=== PATIENT | female | born 1930 | race African-American/Black ===

== ENCOUNTER 2017-03-13 23:10 | Inpatient (IN) | payer MEDICARE ==
[~2017-03-13] VITALS: Ht 162.6 cm; Wt 58.5 kg
[2017-03-13] MEDS ORDERED: NITROGLYCERIN OINT 1GM/INCH UDPKT TD STA (23:21)
[2017-03-13] MEDS ORDERED: MORPHINE SULFATE 4 MG/ML CPJ (NOT FOR IM USE) IV STA (23:21)
[2017-03-13] MEDS ORDERED: FUROSEMIDE 40MG/4ML VIAL IV STA (23:21)
[2017-03-13] MEDS ORDERED: ONDANSETRON HCL 4MG/2ML VIAL IV STA (23:21)
[2017-03-13 23:43] LABS: BASOPHILS % 0.5 % (0.0-2.0); EOSINOPHILS % 2.4 % (0.0-5.0); HEMATOCRIT. 29.2 % (36.0-48.0); HEMOGLOBIN. 9.5 g/dL (12.0-16.0); LYMPHOCYTES % 23.1 % (20.0-50.0); MEAN CORPUSCULAR HEMOGLOBIN 26.5 pg (28.0-32.0); MEAN CORPUSCULAR VOLUME 81.3 fL (81.0-99.0); MEAN PLATELET VOLUME 8.9 fl (7.4-10.4); PLATELET 232 x1000/uL (130-400); RED BLOOD CELL COUNT 3.59 mill/uL (4.2-5.4); RED CELL DISTRIBUTION WIDTH 13.8 % (11.6-14.6)
[2017-03-13 23:49] LABS: CHLORIDE 105 mEq/L (98-107)
[2017-03-13 23:50] LABS: PROTHROMBIN TIME 10.3 sec (9.4-11.6)
[2017-03-13 23:59] LABS: CARBON DIOXIDE 25 mEq/L (21-32); TROPONIN I 0.05 ng/mL (0.00-0.04)
[2017-03-14 08:12] VITALS: BP 145/72
[2017-03-14 08:20] VITALS: BP 145/72
[2017-03-14] MEDS ORDERED: [UNRECOGNIZED DRUG - REMARK] (10:40)
[2017-03-14] MEDS ORDERED: DILT180C69 PO (10:40)
[2017-03-14] MEDS ORDERED: LOSA100T14 PO (10:40)
[2017-03-14] MEDS ORDERED: INSULIN PEN SQ (10:40)
[2017-03-14] MEDS ORDERED: PANT40TA4 PO (10:40)
[2017-03-14] MEDS ORDERED: ASPI-1159 PO (10:40)
[2017-03-14] MEDS ORDERED: ACETAMINOPHEN 650MG/20.3ML UDC PO PRN (11:15)
[2017-03-14] MEDS ORDERED: DEXTROSE 50% WATER 50ML SYRINGE IV PRN (11:15)
[2017-03-14] MEDS ORDERED: IPRATROPIUM/ALBUTEROL 0.5-3(2.5)MG/3ML NEB HHN PRN (11:15)
[2017-03-14] MEDS: BLOOD SUGAR DIAGNOSTIC STRIP TEST SCH ×3 (12:20→20:22)
[2017-03-14 13:03] VITALS: BP 135/61
[2017-03-14] MEDS: ACETAMINOPHEN 325MG TABLET PO PRN (13:26)
[2017-03-14] MEDS: ENOXAPARIN 30MG/0.3ML SYR SUBCUT SCH (13:27)
[2017-03-14] MEDS: INSULIN LISPRO 100 UNITS/ML SUBCUT SCH ×3 (13:28→20:29)
[2017-03-14 15:29] LABS: CREATINE KINASE MB FRACTION 2.1 ng/mL (0.5-3.6); TROPONIN I 0.07 ng/mL (0.00-0.04)
[2017-03-14] MEDS: METHYLPREDNISOLONE SOD SUCC 40 MG/ML VIAL IV SCH ×2 (16:19→20:30)
[2017-03-14] MEDS ORDERED: AZITHROMYCIN 500 MG in DEXT 5% WATER 250 ML IV SCH (17:00)
[2017-03-14 17:40] VITALS: BP 147/71
[2017-03-14] MEDS ORDERED: ONDANSETRON HCL 4MG/2ML VIAL IV PRN (18:45)
[2017-03-14 19:29] LABS: CLARITY URINE CLEAR (CLEAR); COLOR URINE YELLOW (YELLOW); GLUCOSE URINE NEGATIVE (NEGATIVE); KETONES URINE NEGATIVE (NEGATIVE); LEUKOCYTE ESTERASE URINE 1+ (NEGATIVE); NITRITE URINE NEGATIVE (NEGATIVE); OCCULT BLOOD URINE NEGATIVE (NEGATIVE); PROTEIN URINE 3+ (NEGATIVE); SPECIFIC GRAVITY URINE 1.016 (1.005-1.030); UROBILINOGEN URINE 0.2 E.U./dL (0.2-1.0)
[2017-03-14 20:00] VITALS: BP 133/72
[2017-03-14 23:27] LABS: CREATINE KINASE MB FRACTION 2.1 ng/mL (0.5-3.6); TROPONIN I 0.06 ng/mL (0.00-0.04)
[2017-03-15] VITALS: BP 127/68
[2017-03-15 04:00] VITALS: BP 118/55
[2017-03-15] MEDS: BLOOD SUGAR DIAGNOSTIC STRIP TEST SCH ×2 (06:23→12:04)
[2017-03-15] MEDS: ACETAMINOPHEN 325MG TABLET PO PRN (06:30)
[2017-03-15 07:12] LABS: CREATINE KINASE MB FRACTION 1.9 ng/mL (0.5-3.6)
[2017-03-15 07:41] LABS: TROPONIN I 0.03 ng/mL (0.00-0.04)
[2017-03-15] MEDS: METHYLPREDNISOLONE SOD SUCC 40 MG/ML VIAL IV SCH (08:43)
[2017-03-15] MEDS: ENOXAPARIN 30MG/0.3ML SYR SUBCUT SCH (08:43)
[2017-03-15] MEDS: INSULIN LISPRO 100 UNITS/ML SUBCUT SCH ×2 (08:44→12:32)
[2017-03-15 12:47] VITALS: BP 148/72
[2017-03-15 12:50] VITALS: BP 148/72
[2017-03-15 13:07] VITALS: BP 134/86
== END 2017-03-15 14:30 | disposition home or self-care (01) | DRG 291 ==
LOC: ER 23:10 → 6WST 03-14 02:34 → EDBEDREQ 03-14 02:37 → EDBEDREQTM 03-14 02:37 → ENRESERV 03-14 07:05
PROVIDERS: ADMIT Internal Medicine; ATTEND Internal Medicine
DX: I11.0 Hypertensive heart disease with heart failure (principal); J96.90 Respiratory failure, unspecified, unspecified whether with hypoxia or hypercapnia; J44.1 Chronic obstructive pulmonary disease with (acute) exacerbation; Z99.81 Dependence on supplemental oxygen; E11.9 Type 2 diabetes mellitus without complications; D64.9 Anemia, unspecified; I50.23 Acute on chronic systolic (congestive) heart failure; Z88.1 Allergy status to other antibiotic agents; Z88.8 Allergy status to other drugs, medicaments and biological substances; Z79.82 Long term (current) use of aspirin; Z79.4 Long term (current) use of insulin; Z79.899 Other long term (current) drug therapy
CPT/HCPCS: 36415; 71010; 80053; 81001; 82550; 82553; 82962; 83880; 84484; 85025; 85610; 87086; 93005; 93306; 96374; 96375; 99291; J0456; J1650; J1815; J1940; J2270; J2405; J2920; J7030; J7050; J7060

== ENCOUNTER 2017-04-11 07:18 | Inpatient (IN) | payer MEDICARE ==
[~2017-04-11] VITALS: Ht 162.6 cm; Wt 59.0 kg
[~2017-04-11 07:18] MED LIST: ASPI-1159 PO; DILT180C69 PO; INSULIN PEN SQ; LOSA100T14 PO; PANT40TA4 PO; [UNRECOGNIZED DRUG - REMARK]
[2017-04-11] MEDS ORDERED: ASPIRIN 81MG TABLET PO STA (07:33)
[2017-04-11] MEDS ORDERED: METHYLPREDNISOLONE SOD SUCC 125 MG/2 ML VIAL IV STA (07:33)
[2017-04-11] MEDS ORDERED: FUROSEMIDE 40MG/4ML VIAL IV STA (07:33)
[2017-04-11] MEDS ORDERED: ONDANSETRON HCL 4MG/2ML VIAL IV STA (07:33)
[2017-04-11] MEDS ORDERED: IPRATROPIUM/ALBUTEROL 0.5-3(2.5)MG/3ML NEB HHN ONE (07:45)
[2017-04-11] MEDS ORDERED: LEVOFLOXACIN 750MG PREMIX 150 ML IV ONE (07:45)
[2017-04-11 08:04] LABS: BASOPHILS % 0.4 % (0.0-2.0); EOSINOPHILS % 1.8 % (0.0-5.0); HEMATOCRIT. 26.9 % (36.0-48.0); HEMOGLOBIN. 8.7 g/dL (12.0-16.0); LYMPHOCYTES % 17.3 % (20.0-50.0); MEAN CORPUSCULAR HEMOGLOBIN 26.2 pg (28.0-32.0); MEAN CORPUSCULAR VOLUME 80.8 fL (81.0-99.0); MEAN PLATELET VOLUME 8.9 fl (7.4-10.4); MONOCYTES % 7.1 % (2.0-8.0); NEUTROPHILS % 73.4 % (40.0-76.0); PLATELET 218 x1000/uL (130-400); RED BLOOD CELL COUNT 3.32 mill/uL (4.2-5.4); RED CELL DISTRIBUTION WIDTH 15.1 % (11.6-14.6)
[2017-04-11 08:11] LABS: BG BASE EXCESS -2.1 mmol/L (-2.0-2.0); BG CARBOXYHEMOGLOBIN 0.3 % (0.5-1.5); BG DEOXYHEMOGLOBIN 0.7 % (0.0-5.0); BG FRACTION INSPIRED OXYGEN 60; BG HCO3 ACT 22.6 mmol/L (22.0-26.0); BG METHEMOGLOBIN 0.5 % (0.0-1.5); BG OXYGEN SATURATION 99.3 % (92.0-98.5); BG OXYHEMOGLOBIN 98.5 % (94.0-97.0); BG PCO2 38.2 mmHg (35.0-45.0); BG PH 7.389 (7.350-7.450); BG PO2 240.1 mmHg (75.0-100.0); BG SAMPLE SITE RIGHT RADIAL; BG TOTAL HEMOGLOBIN 9.6 g/dL (12.0-18.0)
[2017-04-11 08:14] LABS: PARTIAL THROMBOPLASTIN TIME 22.1 sec (23.4-31.0); PROTHROMBIN TIME 10.2 sec (9.4-11.6)
[2017-04-11 08:21] LABS: CARBON DIOXIDE 25 mEq/L (21-32); CHLORIDE 109 mEq/L (98-107); CREATINE KINASE 67 IU/L (26-192); TROPONIN I 0.11 ng/mL (0.00-0.04)
[2017-04-11 09:02] LABS: GLUCOSE URINE NEGATIVE (NEGATIVE); KETONES URINE NEGATIVE (NEGATIVE); LEUKOCYTE ESTERASE URINE 1+ (NEGATIVE); NITRITE URINE NEGATIVE (NEGATIVE); OCCULT BLOOD URINE 1+ (NEGATIVE); PROTEIN URINE 2+ (NEGATIVE); UROBILINOGEN URINE 0.2 E.U./dL (0.2-1.0)
[2017-04-11 09:08] LABS: COLOR URINE YELLOW (YELLOW)
[2017-04-11 09:09] LABS: CLARITY URINE CLEAR (CLEAR)
[2017-04-11 13:41] VITALS: BP 160/72
[2017-04-11 13:42] VITALS: BP 160/70
[2017-04-11] MEDS ORDERED: CLONIDINE 0.1MG TABLET PO PRN (14:45)
[2017-04-11] MEDS ORDERED: DEXTROSE 50% WATER 50ML SYRINGE IV PRN (14:45)
[2017-04-11] MEDS ORDERED: DIPHENHYDRAMINE 50MG/ML VIAL IV PRN (14:45)
[2017-04-11] MEDS ORDERED: ONDANSETRON HCL 4MG/2ML VIAL IV PRN (14:45)
[2017-04-11] MEDS ORDERED: ACETAMINOPHEN 325MG TABLET PO PRN (14:45)
[2017-04-11] MEDS ORDERED: IPRATROPIUM/ALBUTEROL 0.5-3(2.5)MG/3ML NEB INH PRN (14:45)
[2017-04-11] MEDS ORDERED: MAGNESIUM/ALUMINUM HYDROXIDE/SIMETHICONE 30ML UDC PO PRN (14:45)
[2017-04-11 16:00] VITALS: BP 127/82
[2017-04-11] MEDS: BLOOD SUGAR DIAGNOSTIC STRIP TEST SCH ×2 (17:04→21:00)
[2017-04-11] MEDS: INSULIN LISPRO 100 UNITS/ML SUBCUT SCH ×2 (17:52→20:59)
[2017-04-11] MEDS ORDERED: ENOXAPARIN 30MG/0.3ML SYR SUBCUT SCH ×2 (18:00→21:00)
[2017-04-11 20:44] VITALS: BP 130/55
[2017-04-11] MEDS: CARVEDILOL 6.25 MG TABLET PO SCH (20:48)
[2017-04-11] MEDS: SODIUM CHLORIDE 0.9% INJ 3ML FLUSH IVF SCH (21:02)
[2017-04-11] MEDS: IPRATROPIUM/ALBUTEROL 0.5-3(2.5)MG/3ML NEB HHN SCH ×2 (21:38→21:42)
[2017-04-11] MEDS ORDERED: INSULIN DETEMIR UD 100 UNITS/ML SYR SUBCUT SCH ×2 (22:00)
[2017-04-12] VITALS (12 sets, daily range): BP systolic 114–160; BP diastolic 59–75
[2017-04-12] MEDS: SODIUM CHLORIDE 0.9% INJ 3ML FLUSH IVF SCH ×3 (07:02→21:51)
[2017-04-12] MEDS: BLOOD SUGAR DIAGNOSTIC STRIP TEST SCH ×4 (07:03→21:36)
[2017-04-12] MEDS: INSULIN LISPRO 100 UNITS/ML SUBCUT SCH ×4 (07:23→21:50)
[2017-04-12] MEDS: LOSARTAN POTASSIUM 100 MG TABLET PO SCH (08:29)
[2017-04-12] MEDS: FUROSEMIDE 40MG/4ML VIAL IVP SCH (08:29)
[2017-04-12] MEDS: PREDNISONE 10MG TABLET PO SCH (08:29)
[2017-04-12] MEDS: CARVEDILOL 6.25 MG TABLET PO SCH ×2 (08:30→21:52)
[2017-04-12] MEDS: DONEPEZIL HCL 5MG TABLET PO SCH (08:33)
[2017-04-12] MEDS ORDERED: ASPIRIN 81MG EC TABLET PO SCH (09:00)
[2017-04-12 12:41] LABS: T4 FREE 0.89 ng/dL (0.76-1.46)
[2017-04-12 13:27] LABS: HEMATOCRIT 23.2 % (36.0-48.0); HEMOGLOBIN 7.5 g/dL (12.0-16.0)
[2017-04-12 16:57] LABS: CREATINE KINASE MB FRACTION 2.9 ng/mL (0.5-3.6); TROPONIN I 0.08 ng/mL (0.00-0.04)
[2017-04-12] MEDS: IPRATROPIUM/ALBUTEROL 0.5-3(2.5)MG/3ML NEB HHN SCH (20:47)
[2017-04-12] MEDS ORDERED: INSULIN DETEMIR UD 100 UNITS/ML SYR SUBCUT SCH (22:00)
[2017-04-12 23:27] LABS: CREATINE KINASE MB FRACTION 2.1 ng/mL (0.5-3.6); TROPONIN I 0.07 ng/mL (0.00-0.04)
[2017-04-13] VITALS: BP 135/65
[2017-04-13 04:00] VITALS: BP 155/71
[2017-04-13] MEDS: BLOOD SUGAR DIAGNOSTIC STRIP TEST SCH ×3 (06:37→17:58)
[2017-04-13] MEDS: SODIUM CHLORIDE 0.9% INJ 3ML FLUSH IVF SCH ×2 (06:44→13:47)
[2017-04-13 07:04] LABS: BASOPHILS % 0.1 % (0.0-2.0); EOSINOPHILS % 1.5 % (0.0-5.0); HEMATOCRIT. 27.4 % (36.0-48.0); HEMOGLOBIN. 9.1 g/dL (12.0-16.0); LYMPHOCYTES % 13.8 % (20.0-50.0); MEAN CORPUSCULAR HEMOGLOBIN 26.4 pg (28.0-32.0); MEAN CORPUSCULAR VOLUME 80.1 fL (81.0-99.0); MEAN PLATELET VOLUME 8.3 fl (7.4-10.4); NEUTROPHILS % 76.6 % (40.0-76.0); PLATELET 183 x1000/uL (130-400); RED BLOOD CELL COUNT 3.43 mill/uL (4.2-5.4)
[2017-04-13] MEDS: INSULIN LISPRO 100 UNITS/ML SUBCUT SCH ×3 (07:50→18:37)
[2017-04-13 08:02] VITALS: BP 144/70
[2017-04-13 08:16] LABS: CREATINE KINASE MB FRACTION 1.9 ng/mL (0.5-3.6); TROPONIN I 0.09 ng/mL (0.00-0.04)
[2017-04-13] MEDS ORDERED: ASPIRIN 81MG TABLET PO SCH (09:00)
[2017-04-13] MEDS: FUROSEMIDE 40MG/4ML VIAL IVP SCH (09:01)
[2017-04-13] MEDS: PREDNISONE 10MG TABLET PO SCH (09:03)
[2017-04-13] MEDS: CARVEDILOL 6.25 MG TABLET PO SCH (09:03)
[2017-04-13] MEDS: LOSARTAN POTASSIUM 100 MG TABLET PO SCH (09:03)
[2017-04-13] MEDS: DONEPEZIL HCL 5MG TABLET PO SCH (09:04)
[2017-04-13] MEDS ORDERED: INSULIN DETEMIR UD 100 UNITS/ML SYR SUBCUT SCH ×2 (10:00→22:00)
[2017-04-13 12:00] VITALS: BP 149/63
[2017-04-13 16:00] VITALS: BP 154/72
[2017-04-13 18:18] VITALS: BP 138/80
[2017-04-14] MEDS ORDERED: INSULIN DETEMIR UD 100 UNITS/ML SYR SUBCUT SCH (10:00)
== END 2017-04-13 18:45 | disposition home or self-care (01) | DRG 291 ==
LOC: ER 07:18 → ENRESERV 10:00 → 6WST 12:41 → EDBEDREQ 12:42 → EDBEDREQTM 12:42
PROVIDERS: ADMIT Internal Medicine; ATTEND Internal Medicine
PROC: 30233N1 Transfusion of Nonautologous Red Blood Cells into Peripheral Vein, Percutaneous Approach (ICD-10-PCS; principal; 2017-04-12)
DX: I11.0 Hypertensive heart disease with heart failure (principal); E43 Unspecified severe protein-calorie malnutrition; N17.9 Acute kidney failure, unspecified; J44.1 Chronic obstructive pulmonary disease with (acute) exacerbation; D64.9 Anemia, unspecified; E11.9 Type 2 diabetes mellitus without complications; E78.5 Hyperlipidemia, unspecified; N28.9 Disorder of kidney and ureter, unspecified; J44.9 Chronic obstructive pulmonary disease, unspecified; I50.23 Acute on chronic systolic (congestive) heart failure; Z82.49 Family history of ischemic heart disease and other diseases of the circulatory system; Z83.3 Family history of diabetes mellitus; Z88.6 Allergy status to analgesic agent; Z88.1 Allergy status to other antibiotic agents; Z79.82 Long term (current) use of aspirin; Z79.4 Long term (current) use of insulin; Z79.899 Other long term (current) drug therapy
CPT/HCPCS: 36415; 36600; 71010; 78582; 80048; 80053; 80061; 81001; 82375; 82550; 82553; 82805; 82962; 83036; 83605; 83690; 83735; 83880; 84439; 84443; 84484; 85014; 85018; 85025; 85379; 85610; 85730; 86850; 86900; 86920; 87040; 93005; 93306; 93970; 94640; 96365; 96375; 97162; 99285; A9558; J1650; J1815; J1940; J1956; J2405; J2930; J7030; J7040; J7050; J7512; J7620; P9016

== ENCOUNTER 2019-06-05 06:21 | Inpatient (IN) | payer BC, MEDICARE ==
[~2019-06-05] VITALS: Ht 162.6 cm; Wt 49.9 kg
[~2019-06-05 06:21] MED LIST changes: +ALBU6.7H9 INH; +AMLO2.5T45 PO; +ANAS1TAB7 MT; -ASPI-1159 PO; +ASPI-1393 PO; +ATOR10TA PO; +CARV12.545 PO; -DILT180C69 PO; +DONE5TAB33 PO; +FURO20TA4 PO; +INSU100I24 SQ; -INSULIN PEN SQ; -LOSA100T14 PO; +LOSA25TA26 PO; +MEMA10TA2 PO; -PANT40TA4 PO; +UMEC62.5 INH; -[UNRECOGNIZED DRUG - REMARK]
[2019-06-05] MEDS ORDERED: METHYLPREDNISOLONE SOD SUCC 125 MG/2 ML VIAL IV STA (06:33)
[2019-06-05] MEDS ORDERED: ALBUTEROL (0.083%) 2.5MG/3ML NEB HHN STA (06:33)
[2019-06-05 07:09] LABS: BG BASE EXCESS -3.8 mmol/L (-2.0-2.0); BG BILEVEL POS AIRWAY PRESSURE 15/5; BG CARBOXYHEMOGLOBIN 0.6 % (0.5-1.5); BG DEOXYHEMOGLOBIN 1.7 % (0.0-5.0); BG FRACTION INSPIRED OXYGEN 50; BG HCO3 ACT 21.2 mmol/L (22.0-26.0); BG METHEMOGLOBIN 0.3 % (0.0-1.5); BG OXYGEN SATURATION 98.3 % (92.0-98.5); BG OXYHEMOGLOBIN 97.4 % (94.0-97.0); BG PCO2 38.3 mmHg (35.0-45.0); BG PH 7.361 (7.350-7.450); BG PO2 133.1 mmHg (75.0-100.0); BG SAMPLE SITE RIGHT RADIAL; BG TOTAL HEMOGLOBIN 10.4 g/dL (12.0-18.0); BG VENT MODE MASK - BIPAP
[2019-06-05 07:40] LABS: HEMATOCRIT. 30.8 % (36.0-48.0); HEMOGLOBIN. 10.1 g/dL (12.0-16.0); MEAN CORPUSCULAR HEMOGLOBIN 26.9 pg (28.0-32.0); MEAN CORPUSCULAR VOLUME 81.8 fL (81.0-99.0); MEAN PLATELET VOLUME 9.2 fl (7.4-10.4); PLATELET 264 x1000/uL (130-400); RED BLOOD CELL COUNT 3.76 mill/uL (4.2-5.4); RED CELL DISTRIBUTION WIDTH 16.5 % (11.6-14.6)
[2019-06-05 07:45] LABS: CHLORIDE 108 mEq/L (98-107)
[2019-06-05 08:08] LABS: PLATELET ESTIMATE NORMAL
[2019-06-05] MEDS ORDERED: INSULIN REGULAR (HUMULIN R) 300UNITS/3ML IV ONE (08:30)
[2019-06-05] MEDS ORDERED: SODIUM BICARBONATE 8.4% 1 MEQ/ML 50ML SYR IV ONE (08:30)
[2019-06-05] MEDS ORDERED: DEXTROSE 50% WATER 50ML SYRINGE IV ONE (08:30)
[2019-06-05 15:35] VITALS: BP 175/89
[2019-06-05 15:46] VITALS: BP 175/89
[2019-06-05] MEDS ORDERED: NA PHOS,M-B/NA PHOS,DI-BA ENEMA 118ML PR PRN (16:00)
[2019-06-05] MEDS ORDERED: HYDROCODONE/ACETAMINOPHEN 5/325MG TABLET PO PRN (16:00)
[2019-06-05] MEDS ORDERED: DOCUSATE SODIUM 100MG CAPSULE PO PRN (16:00)
[2019-06-05] MEDS ORDERED: MAGNESIUM/ALUMINUM HYDROXIDE/SIMETHICONE 30ML UDC PO PRN (16:00)
[2019-06-05] MEDS ORDERED: ONDANSETRON HCL 4MG/2ML INJ IV PRN (16:00)
[2019-06-05] MEDS ORDERED: GUAIFENESIN 200MG/10ML SUGAR FREE UDC PO PRN (16:00)
[2019-06-05] MEDS ORDERED: ACETAMINOPHEN 650MG SUPP PR PRN (16:00)
[2019-06-05] MEDS ORDERED: LORAZEPAM 0.5MG TABLET PO PRN (16:00)
[2019-06-05] MEDS ORDERED: DEXTROSE 50% WATER 50ML SYRINGE IV PRN (16:00)
[2019-06-05] MEDS ORDERED: ACETAMINOPHEN 325MG TABLET PO PRN (16:00)
[2019-06-05] MEDS ORDERED: CLONIDINE 0.1MG TABLET PO PRN (16:00)
[2019-06-05] MEDS ORDERED: IPRATROPIUM/ALBUTEROL 0.5-3(2.5)MG/3ML NEB NEB PRN (16:00)
[2019-06-05] MEDS ORDERED: DIPHENHYDRAMINE 50MG/ML VIAL IV PRN (16:00)
[2019-06-05] MEDS: BLOOD SUGAR DIAGNOSTIC STRIP TEST SCH ×2 (16:50→20:24)
[2019-06-05] MEDS: IPRATROPIUM/ALBUTEROL 0.5-3(2.5)MG/3ML NEB NEB SCH ×2 (17:08→20:13)
[2019-06-05] MEDS: INSULIN LISPRO 100 UNITS/ML SUBCUT SCH ×2 (18:22→20:54)
[2019-06-05] MEDS: METHYLPREDNISOLONE SOD SUCC 40 MG/ML VIAL IV SCH (18:22)
[2019-06-05 18:26] LABS: BG BILEVEL POS AIRWAY PRESSURE 15/5; BG CARBOXYHEMOGLOBIN 0.3 % (0.5-1.5); BG DEOXYHEMOGLOBIN 1.8 % (0.0-5.0); BG FRACTION INSPIRED OXYGEN 40; BG HCO3 ACT 20.7 mmol/L (22.0-26.0); BG METHEMOGLOBIN 0.2 % (0.0-1.5); BG OXYGEN SATURATION 98.2 % (92.0-98.5); BG OXYHEMOGLOBIN 97.7 % (94.0-97.0); BG PH 7.428 (7.350-7.450); BG PO2 131.5 mmHg (75.0-100.0); BG SAMPLE SITE RIGHT BRACHIAL; BG TOTAL HEMOGLOBIN 9.8 g/dL (12.0-18.0); BG VENT MODE MASK - BIPAP; BG VENT RATE 16 set
[2019-06-05] MEDS: PIPERACILLIN/TAZOBACTAM 2.25 G in DEXTROSE 5% WATER 50 ML IV SCH (18:50)
[2019-06-05 20:00] VITALS: BP 135/64
[2019-06-05] MEDS: BUDESONIDE 0.5MG/2ML NEB HHN SCH (20:13)
[2019-06-05] MEDS: ENOXAPARIN 30MG/0.3ML SYR SUBCUT SCH (20:16)
[2019-06-05 21:51] LABS: PROTHROMBIN TIME 10.7 sec (9.6-11.0)
[2019-06-05 23:05] LABS: CLARITY URINE CLOUDY (CLEAR); COLOR URINE YELLOW (YELLOW); KETONES URINE TRACE (NEGATIVE); LEUKOCYTE ESTERASE URINE 2+ (NEGATIVE); NITRITE URINE NEGATIVE (NEGATIVE); OCCULT BLOOD URINE NEGATIVE (NEGATIVE); PROTEIN URINE 4+ (NEGATIVE)
[2019-06-05 23:24] LABS: *BARBITURATES SCREEN URINE NEGATIVE (NEGATIVE)
[2019-06-05 23:25] LABS: *AMPHETAMINES SCREEN URINE NEGATIVE (NEGATIVE); *BENZODIAZEPINES SCREEN URINE NEGATIVE (NEGATIVE); *COCAINE SCREEN URINE NEGATIVE (NEGATIVE); CANNABINOID URINE SCREEN NEGATIVE (NEGATIVE); METHADONE URINE SCREEN NEGATIVE (NEGATIVE); OPIATES URINE SCREEN NEGATIVE (NEGATIVE); PHENCYCLIDINE URINE SCREEN NEGATIVE (NEGATIVE)
[2019-06-06] VITALS (12 sets, daily range): BP systolic 121–150; BP diastolic 55–76
[2019-06-06] MEDS: IPRATROPIUM/ALBUTEROL 0.5-3(2.5)MG/3ML NEB NEB SCH ×6 (00:14→21:13)
[2019-06-06] MEDS: METHYLPREDNISOLONE SOD SUCC 40 MG/ML VIAL IV SCH ×3 (02:08→17:12)
[2019-06-06] MEDS: PIPERACILLIN/TAZOBACTAM 2.25 G in DEXTROSE 5% WATER 50 ML IV SCH ×3 (02:08→17:22)
[2019-06-06 02:28] LABS: CREATINE KINASE MB FRACTION 2.2 ng/mL (0.5-3.6)
[2019-06-06] MEDS: BLOOD SUGAR DIAGNOSTIC STRIP TEST SCH ×4 (06:26→21:00)
[2019-06-06 07:20] LABS: HEMATOCRIT. 27.1 % (36.0-48.0); HEMOGLOBIN. 8.9 g/dL (12.0-16.0); MEAN CORPUSCULAR HEMOGLOBIN 26.4 pg (28.0-32.0); MEAN CORPUSCULAR VOLUME 80.5 fL (81.0-99.0); MEAN PLATELET VOLUME 9.4 fl (7.4-10.4); PLATELET 222 x1000/uL (130-400); RED BLOOD CELL COUNT 3.36 mill/uL (4.2-5.4); RED CELL DISTRIBUTION WIDTH 16.3 % (11.6-14.6)
[2019-06-06 07:30] LABS: CHLORIDE 106 mEq/L (98-107)
[2019-06-06 07:44] LABS: CREATINE KINASE 52 IU/L (26-192); HDL CHOLESTEROL 31 mg/dL (40-59)
[2019-06-06 07:45] LABS: CREATINE KINASE MB FRACTION 1.7 ng/mL (0.5-3.6); T4 FREE 1.29 ng/dL (0.76-1.46)
[2019-06-06 07:46] LABS: LDL CHOLESTEROL 41 mg/dL (5-100)
[2019-06-06] MEDS: INSULIN LISPRO 100 UNITS/ML SUBCUT SCH ×4 (08:59→23:12)
[2019-06-06] MEDS: BUDESONIDE 0.5MG/2ML NEB HHN SCH ×2 (09:47→21:12)
[2019-06-06 11:57] LABS: PLATELET ESTIMATE NORMAL
[2019-06-06 12:28] LABS: HEMATOCRIT 25.5 % (36.0-48.0); HEMOGLOBIN 8.4 g/dL (12.0-16.0)
[2019-06-06] MEDS ORDERED: INSULIN GLARGINE UD 100 UNITS/ML SYR SUBCUT NR (19:00)
[2019-06-06 21:21] LABS: HEMATOCRIT 25.1 % (36.0-48.0); HEMOGLOBIN 8.2 g/dL (12.0-16.0)
[2019-06-06] MEDS: ENOXAPARIN 30MG/0.3ML SYR SUBCUT SCH (21:59)
[2019-06-06] MEDS: INSULIN GLARGINE UD 100 UNITS/ML SYR SUBCUT SCH (23:13)
[2019-06-07] VITALS (13 sets, daily range): BP systolic 113–148; BP diastolic 57–76
[2019-06-07] MEDS: METHYLPREDNISOLONE SOD SUCC 40 MG/ML VIAL IV SCH ×4 (00:32→23:55)
[2019-06-07] MEDS: IPRATROPIUM/ALBUTEROL 0.5-3(2.5)MG/3ML NEB NEB SCH ×6 (01:28→21:07)
[2019-06-07] MEDS: PIPERACILLIN/TAZOBACTAM 2.25 G in DEXTROSE 5% WATER 50 ML IV SCH ×3 (02:59→17:53)
[2019-06-07 06:39] LABS: HEMATOCRIT. 25.7 % (36.0-48.0); HEMOGLOBIN. 8.5 g/dL (12.0-16.0); MEAN CORPUSCULAR HEMOGLOBIN 26.5 pg (28.0-32.0); MEAN CORPUSCULAR VOLUME 79.8 fL (81.0-99.0); MEAN PLATELET VOLUME 9.5 fl (7.4-10.4); PLATELET 220 x1000/uL (130-400); RED BLOOD CELL COUNT 3.22 mill/uL (4.2-5.4); RED CELL DISTRIBUTION WIDTH 16.1 % (11.6-14.6)
[2019-06-07] MEDS: BLOOD SUGAR DIAGNOSTIC STRIP TEST SCH ×4 (06:59→20:01)
[2019-06-07] MEDS: INSULIN LISPRO 100 UNITS/ML SUBCUT SCH ×4 (07:58→20:02)
[2019-06-07] MEDS: BUDESONIDE 0.5MG/2ML NEB HHN SCH ×2 (08:05→21:07)
[2019-06-07 09:38] LABS: BG BASE EXCESS -3.7 mmol/L (-2.0-2.0); BG CARBOXYHEMOGLOBIN 0.2 % (0.5-1.5); BG DEOXYHEMOGLOBIN 8.8 % (0.0-5.0); BG FRACTION INSPIRED OXYGEN 21; BG METHEMOGLOBIN 0.1 % (0.0-1.5); BG OXYGEN SATURATION 91.2 % (92.0-98.5); BG OXYHEMOGLOBIN 90.9 % (94.0-97.0); BG PCO2 31.1 mmHg (35.0-45.0); BG PH 7.427 (7.350-7.450); BG PO2 61.5 mmHg (75.0-100.0); BG SAMPLE SITE RIGHT RADIAL; BG TOTAL HEMOGLOBIN 9.2 g/dL (12.0-18.0); BG VENT MODE ROOM AIR
[2019-06-07] MEDS: INSULIN GLARGINE UD 100 UNITS/ML SYR SUBCUT SCH ×2 (09:45→22:53)
[2019-06-07] MEDS: SODIUM CHLORIDE 0.9% 1,000 ML IV SCH (11:55)
[2019-06-07] MEDS ORDERED: INSULIN LISPRO 100 UNITS/ML SUBCUT NR (16:30)
[2019-06-07] MEDS: ENOXAPARIN 30MG/0.3ML SYR SUBCUT SCH (19:53)
[2019-06-07 21:11] LABS: PLATELET ESTIMATE NORMAL
[2019-06-08] VITALS (12 sets, daily range): BP systolic 112–149; BP diastolic 68–96
[2019-06-08] MEDS: SODIUM CHLORIDE 0.9% 1,000 ML IV SCH ×2 (01:14→12:36)
[2019-06-08] MEDS: PIPERACILLIN/TAZOBACTAM 2.25 G in DEXTROSE 5% WATER 50 ML IV SCH ×3 (01:18→17:21)
[2019-06-08] MEDS: IPRATROPIUM/ALBUTEROL 0.5-3(2.5)MG/3ML NEB NEB SCH ×5 (01:55→21:13)
[2019-06-08] MEDS: BLOOD SUGAR DIAGNOSTIC STRIP TEST SCH ×4 (06:27→20:20)
[2019-06-08 07:43] LABS: HEMATOCRIT 25.7 % (36.0-48.0); HEMOGLOBIN 8.6 g/dL (12.0-16.0); MEAN CORPUSCULAR HEMOGLOBIN 26.8 pg (28.0-32.0); MEAN CORPUSCULAR VOLUME 79.9 fL (81.0-99.0); PLATELET 204 x1000/uL (130-400); RED BLOOD CELL COUNT 3.22 mill/uL (4.2-5.4); RED CELL DISTRIBUTION WIDTH 15.9 % (11.6-14.6)
[2019-06-08] MEDS: BUDESONIDE 0.5MG/2ML NEB HHN SCH (08:45)
[2019-06-08] MEDS: METHYLPREDNISOLONE SOD SUCC 40 MG/ML VIAL IV SCH ×2 (09:01→17:21)
[2019-06-08] MEDS: INSULIN LISPRO 100 UNITS/ML SUBCUT SCH ×4 (09:04→20:24)
[2019-06-08] MEDS: INSULIN GLARGINE UD 100 UNITS/ML SYR SUBCUT SCH ×2 (10:08→21:33)
[2019-06-08] MEDS: ENOXAPARIN 30MG/0.3ML SYR SUBCUT SCH (19:31)
[2019-06-09] VITALS: BP 140/68
[2019-06-09] MEDS: IPRATROPIUM/ALBUTEROL 0.5-3(2.5)MG/3ML NEB NEB SCH ×6 (00:25→21:12)
[2019-06-09] MEDS: SODIUM CHLORIDE 0.9% 1,000 ML IV SCH (02:06)
[2019-06-09] MEDS: METHYLPREDNISOLONE SOD SUCC 40 MG/ML VIAL IV SCH ×2 (02:06→09:24)
[2019-06-09] MEDS: PIPERACILLIN/TAZOBACTAM 2.25 G in DEXTROSE 5% WATER 50 ML IV SCH ×3 (02:06→17:12)
[2019-06-09 04:00] VITALS: BP 136/72
[2019-06-09] MEDS: BLOOD SUGAR DIAGNOSTIC STRIP TEST SCH ×3 (07:40→17:40)
[2019-06-09 08:00] VITALS: BP 145/74
[2019-06-09] MEDS: INSULIN LISPRO 100 UNITS/ML SUBCUT SCH ×3 (09:43→18:21)
[2019-06-09 12:00] VITALS: BP 148/74
[2019-06-09 14:05] LABS: HEMATOCRIT. 26.1 % (36.0-48.0); HEMOGLOBIN. 8.6 g/dL (12.0-16.0); MEAN CORPUSCULAR HEMOGLOBIN 26.6 pg (28.0-32.0); MEAN CORPUSCULAR VOLUME 80.3 fL (81.0-99.0); MEAN PLATELET VOLUME 9.3 fl (7.4-10.4); PLATELET 198 x1000/uL (130-400); RED BLOOD CELL COUNT 3.24 mill/uL (4.2-5.4); RED CELL DISTRIBUTION WIDTH 16.1 % (11.6-14.6)
[2019-06-09 15:48] LABS: PLATELET ESTIMATE NORMAL
[2019-06-09 16:00] VITALS: BP 133/56
[2019-06-09] MEDS ORDERED: METHYLPREDNISOLONE SOD SUCC 40 MG/ML VIAL IV SCH (16:00)
[2019-06-09 18:30] VITALS: BP 133/56
[2019-06-09] MEDS ORDERED: SULFAMETHOXAZOLE/TRIMETHOPRIM 400/80MG TAB PO SCH (21:00)
[2019-06-09] MEDS ORDERED: INSULIN GLARGINE UD 100 UNITS/ML SYR SUBCUT SCH (22:00)
== END 2019-06-09 21:45 | DRG 291 ==
LOC: ER 06:30 → 3WST 08:31 → EDBEDREQSVC 08:34 → EDBEDREQ 08:34 → ENRESERV 13:27 → 7WST 06-08 23:09
PROVIDERS: ADMIT Internal Medicine; ATTEND Internal Medicine
PROC: 5A09357 Assistance with Respiratory Ventilation, Less than 24 Consecutive Hours, Continuous Positive Airway Pressure (ICD-10-PCS; principal; 2019-06-05)
PROC: 5A09357 Assistance with Respiratory Ventilation, Less than 24 Consecutive Hours, Continuous Positive Airway Pressure (ICD-10-PCS; 2019-06-07)
DX: I13.0 Hypertensive heart and chronic kidney disease with heart failure and stage 1 through stage 4 chronic kidney disease, or unspecified chronic kidney disease (principal); I50.33 Acute on chronic diastolic (congestive) heart failure; J18.9 Pneumonia, unspecified organism; J96.00 Acute respiratory failure, unspecified whether with hypoxia or hypercapnia; J11.00 Influenza due to unidentified influenza virus with unspecified type of pneumonia; J44.1 Chronic obstructive pulmonary disease with (acute) exacerbation; J44.0 Chronic obstructive pulmonary disease with (acute) lower respiratory infection; E87.1 Hypo-osmolality and hyponatremia; J91.8 Pleural effusion in other conditions classified elsewhere; Z68.1 Body mass index [BMI] 19.9 or less, adult; E87.5 Hyperkalemia; E11.22 Type 2 diabetes mellitus with diabetic chronic kidney disease; F03.90 Unspecified dementia, unspecified severity, without behavioral disturbance, psychotic disturbance, mood disturbance, and anxiety; D64.9 Anemia, unspecified; R63.4 Abnormal weight loss; N18.9 Chronic kidney disease, unspecified; E11.65 Type 2 diabetes mellitus with hyperglycemia; Z88.8 Allergy status to other drugs, medicaments and biological substances; Z99.81 Dependence on supplemental oxygen; Z79.899 Other long term (current) drug therapy; Z79.82 Long term (current) use of aspirin; Z79.4 Long term (current) use of insulin
CPT/HCPCS: 36415; 36600; 71045; 71250; 74176; 76770; 78580; 80048; 80061; 80305; 81003; 82270; 82375; 82378; 82550; 82553; 82805; 82962; 83036; 83540; 83550; 83880; 84439; 84443; 84484; 85014; 85018; 85027; 86300; 86850; 86900; 87077; 87186; 87804; 93005; 93970; 94640; 94660; 97161; 97162; 99291; C1893; J1650; J1815; J2543; J2920; J2930; J3490; J7030; J7060; J7611; J7620; J7626